=== PATIENT | male | born 1950 | race Caucasian/White ===

== ENCOUNTER → 2020-12-28 10:54 | Outpatient (CLI) | payer MEDICARE, OTHER, SELFPAY ==
[2020-12-28 12:49] LABS: Prostate Specific Antigen 3.68 ng/mL (0.10-4.00)
== END ==
PROVIDERS: Referring Provider Urology; Visit Provider Urology
DX: R97.20 Elevated prostate specific antigen [PSA] (principal)
CPT/HCPCS: 36415; 84153

== ENCOUNTER → 2021-02-08 07:25 | Outpatient (CLI) | payer MEDICARE, OTHER, SELFPAY ==
[2021-02-08 08:13] LABS: Alanine Aminotransferase 28 IU/L (<50); Albumin 3.9 g/dL (3.5-5.0); Albumin Globulin Ratio 1.4 (1.0-2.8); Alkaline Phosphatase 61 U/L (38-126); Aspartate Aminotransferase 35 IU/L (17-59); Bilirubin Total 0.7 mg/dL (0.2-1.3); Bilirubin Unconjugated 0.6 mg/dL (0.0-1.1); Cholesterol 136 mg/dL (140-199); Globulin 2.7 g/dL (1.7-4.1); HDL Cholesterol 40 mg/dL (40-60); HEMOLYSIS < 15 (0-50); LDL Cholesterol Calculated 79 mg/dL (<100); Total Protein 6.6 g/dL (6.3-8.2); Triglycerides 84 mg/dL (35-150)
== END ==
PROVIDERS: PCP Family Medicine; Referring Provider Family Medicine; Visit Provider Family Medicine
DX: E78.5 Hyperlipidemia, unspecified (principal)
CPT/HCPCS: 36415; 80061; 80076

== ENCOUNTER → 2022-01-10 15:35 | Outpatient (CLI) | payer MEDICARE, OTHER, SELFPAY ==
[2022-01-10 17:03] LABS: Prostate Specific Antigen 4.25 ng/mL (0.10-4.00)
== END ==
PROVIDERS: PCP Family Medicine; Referring Provider Urology; Visit Provider Urology
DX: C61 Malignant neoplasm of prostate (principal)
CPT/HCPCS: 36415; 84153

== ENCOUNTER → 2022-11-18 10:05 | Outpatient (CLI) | payer MEDICARE, OTHER, SELFPAY ==
[2022-11-18 12:45] LABS: Prostate Specific Antigen 4.38 ng/mL (0.10-4.00)
== END ==
PROVIDERS: PCP Family Medicine; Referring Provider Urology; Visit Provider Urology
DX: C61 Malignant neoplasm of prostate (principal)
CPT/HCPCS: 36415; 84153

== ENCOUNTER → 2023-11-20 07:02 | Outpatient (CLI) | payer MEDICARE, OTHER, SELFPAY ==
[2023-11-20 09:16] LABS: Prostate Specific Antigen 4.19 ng/mL (0.10-4.00)
== END ==
PROVIDERS: PCP Family Medicine; Referring Provider Urology; Visit Provider Urology
DX: R97.20 Elevated prostate specific antigen [PSA] (principal)
CPT/HCPCS: 36415; 84153

== ENCOUNTER → 2025-01-04 08:46 | Outpatient (CLI) | payer MEDICARE, OTHER, SELFPAY ==
[2025-01-04 10:19] LABS: Prostate Specific Antigen 3.90 ng/mL (0.10-4.00)
== END ==
LOC: LAB 08:49
PROVIDERS: PCP Family Medicine; Referring Provider Urology; Visit Provider Urology
DX: R97.20 Elevated prostate specific antigen [PSA] (principal)
CPT/HCPCS: 36415; 84153